=== PATIENT | female | born 1995 | race Caucasian/White ===

== ENCOUNTER 2025-09-26 21:38 | Emergency (ER) | payer OTHER, SELFPAY ==
[2025-09-26 21:39] VITALS: BP 143/80; PULSE 90; RESP 16; TEMP 36.2; O2SAT 100; BMI 24.3
[2025-09-26 22:27] LABS: Mucous, Urine 0 SEEN /hpf (<or=2+); Red Blood Cells-Urine 0 SEEN /hpf (0-5)
[2025-09-26 22:33] LABS: Hematocrit 35.2 % (37-47); Hemoglobin 11.9 g/dL (12.0-15.0); Immature Granulocytes Count 0.010 X10^3/uL (0.0-0.0); Mean Corp Hgb Conc 33.8 g/dL (32-36); Mean Corpuscular Volume 86.9 fL (81-99); Mean Platelet Vol. 10.4 fl (6.2-12.0); NRBC Flagged by Analyzer 0 % (0-5); Platelet Count 232 K/mm3 (150-450); RBC Distribution Width CV 12.0 % (11.6-14.6); RBC Distribution Width SD 38.0 fl (35.1-43.9); Red Blood Count 4.05 M/mm3 (4.2-5.4); White Blood Count 6.6 K/mm3 (4.4-11.0)
[2025-09-26 22:34] LABS: Color, Urine Yellow (Yellow); Glucose, Dipstick Normal (Normal); Ketone-Dipstick Negative (Negative); Leukocyte Esterase-Dipstick 25 /ul (Negative); Nitrite-Dipstick Negative (Negative); Occult Blood-Urine Negative /ul (Negative); Protein-Dipstick Negative (Negative); Specific Gravity, Urine 1.010 (1.002-1.030); Urine Bilirubin Dipstick Negative (Negative)
[2025-09-26 22:49] LABS: Squamous Epithelial Cells - UA 0-5 SEEN /hpf (5-10)
[2025-09-26 23:05] LABS: Internal QC Validated? YES +Cl - CLEAR BKGD; Pregnancy, Serum, hCG Quali. NEGATIVE Negative
[2025-09-26 23:54] VITALS: BP 123/77
--- NOTE | 2025-09-26 23:54 | EDS_ITS ---
HPI HPI - Female History of Present Illness Chief Complaint: Female C/O Detail of Chief Complaint: Pelvic lower abdominal pain for some time., 3 months. Informant: patient Pain Pain: Positive for Pelvic Pain; Negative for Vulvar Pain or Vaginal Pain Onset: Month(s) Context: Gradual Onset Timing: Intermittent and Waxes and wanes Quality: Positive for Cramping and Aching Current Severity: Mild Maximum Severity: Moderate Bleeding Issue: Negative for Vaginal bleeding, Passing clots or Passing tissue Vaginal Discharge Onset: - (None) Associated Symptoms Associated Symptoms: Negative for Dysuria, Frequency, Urgency, Hematuria or Missed Period Sexually: Positive for Active and Single Partner Control: - ( had a vasectomy 6 years ago) P: 1 Ab: 3 Narrative Narrative: Patient is a 30-year-old female who presents with pelvic pain that started several months ago. Is gotten worse. It is wax and wanes in intensity is achy crampy in nature. She denies vaginal bleeding or vaginal discharge. Her had a vasectomy 6 years ago. She denies dysuria, frequency, urgency or hematuria. She does have a history of renal/ureteral lithiasis. She states this pain is different. She denies breast tenderness, weight gain or weight loss. She does endorse dyspareunia for the past couple of months. She has no history of STI. She de nies history of endometriosis. She once was diagnosed with a ovarian cyst Prior similar symptoms: No Recent Illness/Hospitalization: No PFSH PFSH Home Medications ?Medication ?Instructions ?Recorded ?Last Taken ?Type hydrocodone-acetaminophen 5-325mg 1 tab PO Q6H PRN PRN Pain 3 days 09/27/25 Unknown Rx 5mg-325mg #10 TABLETS Allergy/AdvReac Type Severity Reaction Status Date / Time No Known Allergies Allergy Verified 09/26/25 21:41 Social History (Updated 09/27/25 @ 00:[address] Real Contreras MD) household members: spouse and children Smoking Status: Former smoker ROS ROS ED Constitutional Constitutional ED: Denies chills, fever(s), subjective or sweats Cardiovascular Cardiovascular: Denies chest pain or palpitations Respiratory/Chest Respiratory/Chest: Denies cough, dyspnea or dyspnea on exertion Gastrointestinal Gastrointestinal: Reports abdominal pain; Denies constipation, diarrhea, nausea or vomiting Genitourinary Genitourinary ED: Reports urinary frequency; Denies dysuria or hematuria Musculoskeletal Musculoskeletal: Denies arthralgias, myalgias or neck pain Integumentary Denies Abrasions or rash Neurologic Neurologic: Denies headache(s) or paresthesias Psychiatric Psychiatric: Denies anxiety or depression EXAM Physical Exam Const Vital Signs: 09/26/25 21:39 09/26/25 23:54 Temperature 97.2 F L Temperature Source Temporal Pulse Rate 90 Respiratory Rate 16 Blood Pressure 143/80 H 123/77 H Blood Pressure Mean 101 92 Pulse Ox 100 Oxygen Delivery Method Room Air Positive well nourished and well developed General Appearance ED: well developed and NAD; Negative for odor of alcohol detected or pallor HEENT Reports TM's clear and moist mucous membranes HEENT Narrative: Head is atraumatic and normocephalic. Ears are normal. Posterior pharynx is normal. Negative for trauma Tympanic Membrane ED: Yes TM's clear Eyes PERRL and EOMs intact bilaterally General Eye ED: Negative for pale conjunctiva or scleral icterus Neck no lymphadenopathy, supple and no JVD Chest Wall inspection of chest normal and palpation of chest normal Resp normal respiratory effort and clear to auscultation bilaterally Cardio regular rate, regular rhythm, S1 normal heart sound, no murmurs and no JVD GI normal to inspection, nondistended, normoactive bowel sounds, soft to palpation, non-distended and no masses Palpation: tender LLQ, RLQ and suprapubic Narrative: External genitalia normal. Vaginal mucosa normal. There is slight friability of the cervix. There is physiologic discharge noted. There is no blood noted from the os. Bimanual exam reveals an enlarged uterus and possibly an enlarged right ovary. She has significant tenderness to palpation of the uterus and equivocal chandelier sign. There is also significant discomfort pressure against the bladder. Back/Spine no CVA tenderness Extremity normal to inspection and full ROM Neuro oriented x3, CN's II-XII intact bilaterally and no sensory deficits noted Sensorium / Orientation: alert Motor Exam: strength 5/5 throughout Psych mental status grossly normal Skin no rashes or lesions noted and no wounds General Skin Exam: Negative for jaundice or pallor MDM MDM MDM Narrative Medical decision making narrative: Differential diagnoses pelvic pain unknown etiology, STI, ovarian cyst, ovarian torsion, pelvic mass, fibroids. Will obtain hCG to rule out , CBC and a UA. Based on the pelvic findings Dr. Marrero was contacted since she is on-call for [facility] with no doc. The patient is to call the office they will set her up for an ultrasound and office visit. Since she had a positive chandelier sign will send urine for GC and chlamydia. History & Record Review Discussion w/independent historian: Patient Lab Data Attestation: I reviewed the patient's lab results. Lab results narrative: CBC reveals mild anemia with normal indices. hCG is negative. Urinalysis is negative Labs: Laboratory Results - last 24 hr 09/26/25 09/26/25 22:10 22:22 WBC 6.6 RBC 4.05 L Hgb 11.9 L Hct 35.2 L MCV 86.9 MCH 29.4 MCHC 33.8 RDW Std Deviation 38.0 RDW Coeff of Deepti 12.0 Plt Count 232 MPV 10.4 Immature Gran % (Auto) 0.200 Neut % (Auto) 48.4 Lymph % (Auto) 39.5 [place] % (Auto) 10.5 H Eos % (Auto) 0.8 Baso % (Auto) 0.6 Absolute Neuts (auto) 3.2 Absolute Lymphs (auto) 2.61 Nucleated RBC % 0 Serum , Qual NEGATIVE Urine Color Yellow Urine Clarity Clear Urine pH 7.0 Ur Specific [place] 1.010 Urine Protein Negative Urine Glucose (UA) Normal Urine Ketones Negative Urine Occult Blood Negative Urine Nitrite Negative Urine Bilirubin Negative Urine Urobilinogen Normal Ur Leukocyte Esterase 25 H Urine RBC 0 SEEN Urine WBC 0-5 SEEN Ur Squamous Epith Cells 0-5 SEEN Urine Bacteria 0 SEEN Urine Mucus 0 SEEN Management Discussion w/another healthcare provider: [facility] (Dr. Marrero was contacted to assure follow-up and outpatient workup) Discharge Plan Triage Chief Complaint: Female C/O ED Provider: Real Contreras Dx/Rx/DC Orders Clinical Impression: Pelvic pain, Enlarged uterus, Deep dyspareunia, Anemia Instructions: ED Pelvic Pain, Unknown Cause Prescriptions: New hydrocodone-acetaminophen 5-325 mg tablet 1 tab PO Q6H PRN PRN (Reason: Pain) 3 Days Qty: 10 0RF Primary Care Provider: Mindy Ch Referrals: Antwon Marrero MD [Med Staff - Active Staff, Obstetrics-Gynecology (OBGYN)] - 3-5 Days Mindy Ch MD [Primary Care Provider, Medical] Activity Restrictions/Additional Instructions: Call the [facility] office and let them know you were seen in the emergency room and you are to follow-up with Dr. Marrero or one of her partners for an office visit a nd pelvic ultrasound Print Language: [place] Disposition Disposition: Home, Self Care
[2025-09-27 00:07] VITALS: BP 123/77; PULSE 81; RESP 16; TEMP 36.6; O2SAT 99
== END 2025-09-27 00:31 | disposition home or self-care (01) ==
PROVIDERS: Emergency Provider Emergency Medicine; PCP Family Medicine; Visit Provider Emergency Medicine
DX: R10.20 Pelvic and perineal pain unspecified side (principal); D64.9 Anemia, unspecified; N89.8 Other specified noninflammatory disorders of vagina; N85.2 Hypertrophy of uterus; Z87.891 Personal history of nicotine dependence; N83.209 Unspecified ovarian cyst, unspecified side; R10.9 Unspecified abdominal pain; R35.0 Frequency of micturition; Z87.442 Personal history of urinary calculi
CPT/HCPCS: 81001; 84703; 85025; 96374; 99283; A4216